=== PATIENT | female | born 1985 | race Caucasian/White ===

== ENCOUNTER 2019-05-01 18:58 | Emergency (ER) | payer SELFPAY ==
[~2019-05-01] VITALS: Ht 165.1 cm; Wt 78.0 kg
[2019-05-01 20:56] VITALS: BP 118/56
[2019-05-01] MEDS ORDERED: SULF1TAB24 PO (21:01)
[2019-05-01] MEDS ORDERED: DICL50TA2 PO (21:02)
--- NOTE | 2019-05-01 21:02 | PHYS DOC ---
Past Medical History Past Medical History: No Pertinent History (INDIA MARTINEZ APRN) Past Surgical History: Appendectomy, Hysterectomy (INDIA MARTINEZ APRN) Smoking Status: Current Every Day Smoker Alcohol Use: None Drug Use: Marijuana (INDIA MARTINEZ APRN) Attending Signature I have participated in the care of this patient and I have reviewed and agree with all pertinent clinical information above including history, exam, and recommendations. (ASIA SMITH MD) Adult General Chief Complaint Chief Complaint: SKIN PROBLEM HPI HPI Patient is a 34 year old female who presents to the ED today complaining of skin infection around her umbilicus. Patient reports having a belly button piercing years ago but has not had any jewelry to the area for a couple years. She states for the last 2 days the area has been draining yellow material. Patient denies any fever. Denies any nausea vomiting. (INDIA MARTINEZ APRN) Review of Systems Review of Systems Constitutional: Denies fever or chills [] Musculoskeletal: Denies back pain or joint pain [] Integument: Reports belly button drainage Neurologic: Denies headache, focal weakness or sensory changes [] All other systems were reviewed and found to be within normal limits, except as documented in this note. (INDIA MARTINEZ APRN) Current Medications Current Medications Current Medications Medications (Trade) Dose Ordered Sig/Hoang Start Time Stop Time Status Last Admin Dose Admin Acetaminophen/ Hydrocodone Bitart (Lortab 5/325) 1 tab 1X ONCE 05/01/19 21:30 05/01/19 21:31 Diphtheria/ Tetanus/Acell Pertussis (ADACEL TDap SYRINGE) 0.5 ml ONCE ONCE 05/01/19 21:30 05/01/19 21:31 (ASIA SMITH MD) Allergies Allergies Allergies Coded Allergies Type Severity Reaction Last Updated Verified Penicillins Allergy Severe Anaphylaxis 09/07/18 Yes (ASIA SMITH MD) Physical Exam Physical Exam Constitutional: Well developed, well nourished, no acute distress, non-toxic appearance. [] Skin: Scarring noted around the belly button consistent with previous piercing. There is trace amount of greenish drainage around the scapular region as well as the belly button itself. There is slight erythema around the belly button piercing. There is no obvious pockets of abscess. Back: No tenderness, no CVA tenderness. [] Extremities: No tenderness, no cyanosis, no clubbing, ROM intact, no edema. [] Neurologic: Alert and oriented X 3, normal motor function, normal sensory function, no focal deficits noted. [] Psychologic: Affect normal, judgement normal, mood normal. [] (INDIA MARTINEZ APRN) Current Patient Data Vital Signs Vital Signs Date Time Temp Pulse Resp B/P (MAP) Pulse Ox O2 Delivery O2 Flow Rate FiO2 05/01/19 20:56 98.0 64 18 118/56 (76) 95 Room Air 98.0 (ASIA SMITH MD) EKG EKG [] (INDIA MARTINEZ APRN) Radiology/Procedures Radiology/Procedures [] (INDIA MARTINEZ APRN) Course & Med Decision Making Course & Med Decision Making Pertinent Labs and Imaging studies reviewed. (See chart for details) This is a 34-year-old female patient presented to the ED today with infected belly button from a previous piercing. Patient was put on Bactrim. Wound care instructions and return precautions provided. Tetanus given in the ED. (INDIA MARTINEZ APRN) Dragon Disclaimer Dragon Disclaimer This electronic medical record was generated, in whole or in part, using a voice recognition dictation system. (INDIA MARTINEZ APRN) Departure Departure Impression: Primary Impression: Skin infection Disposition: 01 HOME, SELF-CARE Condition: STABLE Referrals: NO PCP (PCP) follow up with your doctor in 1-2 weeks Patient Instructions: Skin Infections Additional Instructions: You have skin infection around your umbilicus. Please keep the area clean and dry. Please apply warm compresses to the area twice a day. Please take the prescribed antibiotics until completed Please follow-up with your own doctor in 1-2 weeks Scripts Diclofenac Potassium (DICLOFENAC POTASSIUM) 50 Mg Tablet 1 TAB PO BID, #20 TAB 0 Refills Prov: INDIA MARTINEZ APRN 05/01/19 Sulfamethoxazole/Trimethoprim (BACTRIM DS TABLET) 1 Each Tablet 1 TAB PO BID for 10 Days, #20 TAB 0 Refills Prov: INDIA MARTINEZ APRN 05/01/19 INDIA MARTINEZ APRN May 01, 2019 21:02 ASIA SMITH MD May 01, 2019 21:29
[2019-05-01] MEDS ORDERED: HYDROcodone/APAP 5/325MG 1 TAB TABLET PO ONE (21:30)
[2019-05-01] MEDS ORDERED: DIPH,PERTUSS(ACELL),TET VAC/PF 0.5 ML SYRINGE. VAX IM ONE (21:30)
== END 2019-05-01 21:36 | disposition home or self-care (01) ==
LOC: ER 18:58
DX: L08.9 Local infection of the skin and subcutaneous tissue, unspecified (principal); F12.90 Cannabis use, unspecified, uncomplicated; F17.200 Nicotine dependence, unspecified, uncomplicated; Z90.89 Acquired absence of other organs; Z90.710 Acquired absence of both cervix and uterus; Z88.0 Allergy status to penicillin
CPT/HCPCS: 90471; 90715; 99283